=== PATIENT | male | born 1950 | race Caucasian/White ===

== ENCOUNTER 2024-12-14 11:11 | Inpatient (IN) | payer OTHER ==
[2024-12-14 13:09] LABS: MCHC 32.3 g/dl (32.3-36.5); MEAN CELL VOLUME 87.3 fl (79.0-92.2); MEAN PLT VOLUME 10.4 fl (9.4-12.4); RDW 14.0 % (12.2-16.6)
[2024-12-14 13:28] LABS: INR 0.98 (0.83-1.09); PROTHROMBIN TIME (PATIENT) 10.9 SEC (9.7-13.0)
[2024-12-14 13:30] LABS: ACTIVATED PTT 33.1 SECONDS (25.2-36.5)
[2024-12-14 13:37] LABS: ALK PHOS 88 U/L (45-117); CO2 29 mmol/L (21-32); CREATININE 1.9 mg/dl (0.6-1.3); GLUCOSE,RANDOM 122 mg/dl (74-106); LDL CHOLESTEROL (ONLY DFH) 88 mg/dL (5-100); SGOT/AST 14 U/L (15-37); SGPT/ALT 14 U/L (7-52); TOT PROT 6.3 g/dl (6.4-8.2)
[2024-12-14] MEDS: ASPIRIN 81 MG CHEWABLE TABLETS PO ONE (14:39)
[2024-12-14] MEDS ORDERED: ASPIRIN 81 MG CHEWABLE TABLETS ONE (15:15)
[2024-12-14 16:24] LABS: BG HCT 55.0 % (35.4-49); VENOUS BASE EXCESS 2.3 mmol/L (-2-2); VENOUS O2 SATURATION 57.2 % (70-80); VENOUS PCO2 50.0 mmHg (38-52); VENOUS PH 7.377 (7.310-7.410)
[2024-12-14] MEDS ORDERED: GABAPENTIN 300 MG CAPSULE ONE (17:41)
[2024-12-14] MEDS: GABAPENTIN 300 MG CAPSULE PO SCH ×2 (17:43→21:22)
[2024-12-14] MEDS: LACTATED RINGERS SOLUTION 1,000 ML/1,000 ML INFUS.BAG IV SCH (19:22)
[2024-12-14] MEDS: TAMSULOSIN HCL 0.4 MG CAP PO SCH (21:22)
[2024-12-14] MEDS: ATORVASTATIN CA 10 MG TABLET (FP) PO SCH (21:22)
[2024-12-15 01:02] LABS: HCV DIAGNOSTIC IN-HOUSE W/RFLX NON-REACTIVE (NONREACTIVE)
[2024-12-15 01:04] LABS: HIV INTERPRETATION NEGATIVE (NEGATIVE)
[2024-12-15 08:42] LABS: MCHC 32.1 g/dl (32.3-36.5); MEAN CELL VOLUME 88.4 fl (79.0-92.2); MEAN PLT VOLUME 10.9 fl (9.4-12.4); RDW 14.1 % (12.2-16.6)
[2024-12-15 09:17] LABS: CO2 30.0 mmol/L (21-32); CREATININE 1.3 mg/dl (0.6-1.3); GLUCOSE,RANDOM 110.0 mg/dl (74-106)
[2024-12-15] MEDS: FOLIC ACID 1 MG TABLET (FP) PO SCH (09:29)
[2024-12-15] MEDS: ATORVASTATIN CA 80 MG TABLET (FP) PO SCH (21:28)
[2024-12-15] MEDS: APIXABAN 2.5 MG TABLET PO SCH (21:29)
[2024-12-16 07:57] LABS: ABSOLUTE IMMATURE GRANULOCYTES 0.10 x10^3/uL (0.0-0.031); BASOPHILS # 0.04 x10^3/uL (0.01-0.08); EOSINOPHIL % 0.4 % (0.8-7.0); EOSINOPHILS # 0.04 x10^3/uL (0.04-0.54); MCHC 31.6 g/dl (32.3-36.5); MEAN CELL VOLUME 89.3 fl (79.0-92.2); MEAN PLT VOLUME 10.8 fl (9.4-12.4); MONOCYTE # 0.71 x10^3/uL (0.30-0.82); MONOCYTE % 6.7 % (5.3-12.2); RDW 14.0 % (12.2-16.6)
[2024-12-16 10:03] VITALS: BMI 42.5
[2024-12-16] MEDS: amLODIPine BESYLATE 10 MG TABLET (FP) PO SCH (10:04)
[2024-12-16 10:14] LABS: ALK PHOS 77.0 U/L (45-117); CO2 30.0 mmol/L (21-32); CREATININE 1.3 mg/dl (0.6-1.3); GLUCOSE,RANDOM 119.0 mg/dl (74-106); SGOT/AST 14.0 U/L (15-37); SGPT/ALT 13.0 U/L (7-52); TOT PROT 6.1 g/dl (6.4-8.2)
[2024-12-16] MEDS: FUROSEMIDE 40 MG TABLET (FP) PO SCH (13:53)
[2024-12-16 16:23] LABS: EPITHELIAL CELLS 0-5 /hpf
[2024-12-17 08:14] LABS: ABSOLUTE IMMATURE GRANULOCYTES 0.08 x10^3/uL (0.0-0.031); BASOPHILS # 0.05 x10^3/uL (0.01-0.08); EOSINOPHIL % 0.7 % (0.8-7.0); EOSINOPHILS # 0.08 x10^3/uL (0.04-0.54); MCHC 32.2 g/dl (32.3-36.5); MEAN CELL VOLUME 88.3 fl (79.0-92.2); MEAN PLT VOLUME 10.5 fl (9.4-12.4); MONOCYTE # 0.88 x10^3/uL (0.30-0.82); MONOCYTE % 7.7 % (5.3-12.2); RDW 13.6 % (12.2-16.6)
[2024-12-17 09:27] LABS: CO2 29.0 mmol/L (21-32); CREATININE 1.0 mg/dl (0.6-1.3); GLUCOSE,RANDOM 113.0 mg/dl (74-106)
[2024-12-17] MEDS: DOXYCYCLINE HYCLATE 100 MG CAPSULE PO SCH (09:29)
[2024-12-17 15:04] VITALS: BP 172/85; PULSE 75; RESP 19; TEMP 98.8
[2024-12-18 16:07] LABS: MICROALBUMIN/CREATININE RATIO 35.0 mg/g creat (0-29)
== END 2024-12-17 17:37 | disposition home or self-care (01) | DRG 683 ==
LOC: FER 11:11 → FM/S 16:15 → OBSVTOIN 16:15 → INTOOBSV 16:15 → FM/S 17:24
PROVIDERS: ADMIT Internal Medicine; ATTEND Internal Medicine
DX: N17.9 Acute kidney failure, unspecified (principal); I24.89 Other forms of acute ischemic heart disease; I45.2 Bifascicular block; L03.119 Cellulitis of unspecified part of limb; E66.01 Morbid (severe) obesity due to excess calories; I11.0 Hypertensive heart disease with heart failure; I50.9 Heart failure, unspecified; D64.9 Anemia, unspecified; E78.5 Hyperlipidemia, unspecified; E87.6 Hypokalemia; D72.829 Elevated white blood cell count, unspecified; R80.9 Proteinuria, unspecified
CPT/HCPCS: 36415; 70450-TC; 71045-TC-FY; 76604; 80048; 80053; 80061; 81003; 81015; 82043; 82570; 82607; 82746; 82803; 83036; 83735; 83880; 84100; 84156; 84439; 84443; 84484; 85025; 85027; 85610; 85730; 86803; 87389; 93005; 93306-TC; 93308; 97116-GP; 97162-GP; 99285-25